=== PATIENT | female | born 1940 | race Caucasian/White ===

== ENCOUNTER → 2016-10-09 | Outpatient (CLI) | payer OTHER ==
[~2016-10-09] MED LIST: ATEN50TA8 PO; B-CO-25 PO; CHOL1CAP57 PO; GLUCTAB7 PO; LASIX PO; LEVO50TA PO; MAGNESIUM PO; MINOCYCLINE PO; NAPR-1169 PO; OMEGCAP2 PO; PRAZ5CAP2 PO; PRLSR20 PO; RXC5 PO; SENN1TAB25 PO
[2016-10-09 11:30] LABS: URINE TOTAL PROTEIN 6.3 mg/dl (0-11.9)
== END | disposition home or self-care (01) ==
LOC: C.LAB 09:33
PROVIDERS: ATTEND Internal Medicine
DX: R60.9 Edema, unspecified (principal)

== ENCOUNTER 2016-10-22 05:42 | Inpatient (IN) | payer OTHER ==
[2016-10-09 09:07] VITALS: BMI 45.0
--- NOTE | 2016-10-09 09:44 | PAT Medication Instructions ---
Service Date Oct 09, 2016. Current Home Medication List Atenolol (Tenormin), 50 MG PO QAM B-Complex W/ Folic Acid (Super B Complex Maxi), 1 TAB PO QAM Cholecalciferol (Vitamin D3), 1,000 UNITS PO QAM Xkmgckdmrwo-Wwjvkudovbn-Uqc C- (Glucosamine Chondroitin), 1 TAB PO QAM Levothyroxine Sodium (Synthroid), 50 MCG PO QAM Naproxen (Naprosyn), 500 MG PO BID [place]-3 Fatty Acids (Fish Oil), 1 TAB PO QAM Omeprazole (Prilosec), 20 MG PO BID Prazosin Hcl (Prazosin), 5 MG PO HS Sennosides-Docusate Sodium (Stool Softener & Stimulan), 1 TAB PO HS [Lasix], 1 TAB PO QAM [Magnesium], 250 MG PO QAM [Minocyline], 50 MG PO HS Medication Instructions For Your Scheduled Surgery - Check with surgeon for instructions: Naproxen (Naprosyn), 500 MG PO BID - Hold the following medications starting 10/10/16: [place]-3 Fatty Acids (Fish Oil), 1 TAB PO QAM Kdrfwkzldyu-Hydezmjmgqn-Loc C- (Glucosamine Chondroitin), 1 TAB PO QAM - Hold the following medications the morning of surgery: [Magnesium], 250 MG PO QAM [Lasix], 1 TAB PO QAM Cholecalciferol (Vitamin D3), 1,000 UNITS PO QAM B-Complex W/ Folic Acid (Super B Complex Maxi), 1 TAB PO QAM - Take the following medications the morning of surgery with a sip of water: Omeprazole (Prilosec), 20 MG PO BID Levothyroxine Sodium (Synthroid), 50 MCG PO QAM Atenolol (Tenormin), 50 MG PO QAM - Take the following medications as scheduled the night before surgery: [Minocyline], 50 MG PO HS Sennosides-Docusate Sodium (Stool Softener & Stimulan), 1 TAB PO HS Prazosin Hcl (Prazosin), 5 MG PO HS Omeprazole (Prilosec), 20 MG PO BID If you have any questions please call us at [phone] (Keren Suh PA-C) or [phone] or [phone]
[2016-10-09 10:46] LABS: BASO % 0.5 %; BASO ABS # 0.03 K/uL (0-0.2); COMPLETE YES; EOS % 1.6 %; HEMATOCRIT 36.3 % (37-47); LYMPH % 41.2 %; LYMPH ABS # 2.34 K/uL (1.2-3.4); MEAN CELL VOLUME 92.1 fL (80-100); MEAN CORPUSCULAR HEMOGLOBIN 30.7 pg (25-34); MEAN CORPUSCULAR HGB CONC 33.3 g/dl (32-36); MEAN PLATELET VOLUME 10.8 fL (7.4-10.4); MONO % 7.6 %; NEUT % 49.1 %; PLATELET COUNT 232 K/uL (130-400); RED BLOOD COUNT 3.94 M/uL (4.2-5.4); WHITE BLOOD COUNT 5.68 K/uL (4.8-10.8)
[2016-10-09 11:00] LABS: URINE APPEARANCE CLOUDY (CLEAR); URINE BILIRUBIN NEG (NEG); URINE COLOR DK YELLOW; URINE EPITHELIAL CELL AUTO >30 /lpf (0-5); URINE NITRITE NEG (NEG); URINE SPECIFIC GRAVITY 1.028 (1.000-1.030); UROBILINOGEN NEG (NEG)
[2016-10-09 11:03] LABS: MANUAL MICROSCOPIC REQUIRED? NO; REVIEW REQ? NO
[2016-10-09 11:09] LABS: BUN/CREATININE RATIO 17.1 (10-20); CALCIUM 9.3 mg/dl (8.5-10.1); POTASSIUM 4.1 mmol/L (3.5-5.1)
--- NOTE | 2016-10-09 12:40 | DIAGNOSTIC IMAGING REPORT ---
CHEST PREADMISSION(PA/LAT) CLINICAL HISTORY: Preoperative chest COMPARISON STUDY: No previous studies for comparison. FINDINGS: The heart is mildly enlarged. There is calcification within the mitral valve annulus. There is mild right hilar prominence. There is diffuse interstitial thickening, a finding of uncertain chronicity.[ There is no lobar consolidation. There are no pleural effusions. IMPRESSION: 1. Cardiomegaly and interstitial thickening, a finding of uncertain chronicity 2. Mild right hilar prominence Electronically signed by: Robb Rodriguez M.D. 10/09/2016 12:38 PM Dictated Date/Time: 10/09/2016 12:37 PM
--- NOTE | 2016-10-18 09:00 | HISTORY & PHYSICAL EXAMINATION ---
DATE OF ADMISSION: 10/22/2016 The patient presents to our office with complaint of numbness and tingling down her right lower extremity. She also has chronic back pain, as well as fatigue and numbness in both of her legs. She is unable to stand or walk greater than 5 minutes secondary to above-mentioned symptoms. She has trialed epidural injection at the L4-L5 level without any long-lasting relief. Denies bowel or bladder dysfunction. She has trialed medication care manager in the past. MEDICAL HISTORY: Significant for morbid obesity. SURGICAL HISTORY: Significant for unknown. ALLERGIES: Not listed. MEDICATIONS: Not listed. SOCIAL HISTORY: Tobacco history unknown. Alcohol history unknown. REVIEW OF SYSTEMS: Significant for back pain, bilateral leg pain and numbness. PHYSICAL EXAMINATION: HEENT: Speech appropriate. CARDIOPULMONARY: No gross abnormalities. ABDOMEN: Soft and nondistended. NEUROLOGIC: Cranial nerves II-XII grossly intact. MUSCULOSKELETAL: She moves easily around the room. No focal atrophy of lower extremities. She is tender to palpation along the thoracolumbar spine to palpation. Strength is otherwise intact in lower extremities bilaterally. ASSESSMENT: Spinal stenosis and spondylolisthesis, L3-L4 and L4-L5. PLAN: At this point in time, we have reviewed surgical intervention which would require lumbar decompression L3-4, L4-5, instrumented fusion L3-S1. Risks, benefits, pros, cons, and alternatives were outlined in detail. The patient would like to proceed with the above-mentioned surgical intervention.
[~2016-10-22] VITALS: Ht 162.6 cm; Wt 120.1 kg
[2016-10-22] VITALS (9 sets, daily range): BP systolic 104–146; BP diastolic 65–83; PULSE 64–76; TEMP 36.3–36.8; O2SAT 91–96; Ht 162.6 cm; Wt 120.1 kg
[~2016-10-22 05:42] MED LIST changes: -RXC5 PO
[2016-10-22] MEDS ORDERED: CEFAZOLIN 3000 MG/65 ML D5W IV SCH (06:00)
[2016-10-22] MEDS ORDERED: LACTATED RINGER'S 1000ML 1,000 ML IV SCH (06:00)
[2016-10-22] MEDS ORDERED: FENTANYL CITRATE INJ 50 MCG/1 ML 2 ML VIAL ONE (06:14)
[2016-10-22] MEDS ORDERED: MIDAZOLAM HCL 1 MG/ML 2ML VIAL ONE (06:14)
[2016-10-22] MEDS ORDERED: REMIFENTANIL 1 MG VIAL ONE ×2 (06:30→08:27)
[2016-10-22] MEDS ORDERED: PROPOFOL IV EMULSION 10 MG/ML 100 ML VIAL IV ONE (06:37)
[2016-10-22] MEDS ORDERED: SODIUM CHLORIDE 0.9% PF 50 ML VIAL ONE (07:05)
[2016-10-22] MEDS ORDERED: BUPIVACAINE/EPINEPHRINE 0.5% MPF 1:200,000 30 ML VIAL ONE (07:05)
[2016-10-22] MEDS ORDERED: THROMBIN FOR SOLN 20000 UNIT KIT ONE (07:06)
[2016-10-22] MEDS ORDERED: BACITRACIN 50000 UNIT VIAL ONE (07:06)
--- NOTE | 2016-10-22 07:26 | History & Physical Bridge Note ---
H&P Re-Evaluation Bridge Note: I have examined the patient, reviewed the History & Physical and in the interval since the performance of the History & Physical I have noted the following changes of clinical significance: No changes noted
[2016-10-22] MEDS ORDERED: NALOXONE HCL 0.4 MG/1 ML VIAL/CARP IV PRN ×3 (07:45→09:45)
[2016-10-22] MEDS ORDERED: MoRPHine SULFATE 10 MG/ML CARP/VIAL IV PRN (07:45)
[2016-10-22] MEDS ORDERED: PHENYLEPHRINE 100MCG/ML 5ML SYR IV PRN (07:45)
[2016-10-22] MEDS ORDERED: ATROPINE SULFATE 0.1 MG/ML 5ML SYR IV PRN (07:45)
[2016-10-22] MEDS ORDERED: FLUMAZENIL 0.1 MG/1 ML 10 ML VIAL IV PRN (07:45)
[2016-10-22] MEDS ORDERED: EpHEDrine SULFATE INJ 50 MG/ML AMP IV PRN (07:45)
[2016-10-22] MEDS ORDERED: LABETALOL HCL IV 5 MG/ML 20ML IV PRN (07:45)
[2016-10-22] MEDS ORDERED: ONDANSETRON INJ 2 MG/ML 2 ML VIAL IV PRN (07:45)
[2016-10-22] MEDS ORDERED: MEPERIDINE HCL 25 MG/ML CARP IV PRN (07:45)
[2016-10-22] MEDS ORDERED: SODIUM CHLORIDE 0.9% 1000ML 1,000 ML IV SCH (09:36)
--- NOTE | 2016-10-22 09:36 | [facility] Post Operative Brief Note ---
Immediate Operative Summary Operative Date Oct 22, 2016. Pre-Operative Diagnosis Spinal stenosis and spondylolisthesis, L3-L4 and L4-L5 Post-Operative Diagnosis Same as preop Procedure(s) Performed decompression fusion Surgeon Dr. Enoc Au Sas Programmer Analyst Surgeon(s) NENITA Rasmussen Estimated Blood Loss 500 Findings stenosis Specimens None per surgeon
[2016-10-22] MEDS ORDERED: FLOSEAL HEMOSTATIC MATRIX 10ML TOP ONE (09:38)
[2016-10-22] MEDS ORDERED: LORAZEPAM INJ 0.5 MG in SYRINGE 0 ML IV PRN (09:45)
[2016-10-22] MEDS ORDERED: ALUMINUM/MAGNESIUM SUSP 30 ML UDC PO PRN (09:45)
[2016-10-22] MEDS ORDERED: SOD PHOSPHATE/SOD BIPHOSPHATE ENEMA 132 ML BTL PR PRN (09:45)
[2016-10-22] MEDS ORDERED: LORAZEPAM 0.5 MG TAB PO PRN (09:45)
[2016-10-22] MEDS ORDERED: ACETAMINOPHEN 500 MG TAB PO PRN (09:45)
[2016-10-22] MEDS ORDERED: ACETAMINOPHEN IV 100 ML IV PRN (09:45)
[2016-10-22] MEDS ORDERED: DO NOT ADMINISTER FLU VACCINE PRN ×3 (09:45)
[2016-10-22] MEDS ORDERED: DO NOT ADMINISTER PNEUMOCOCCAL VACCINE PRN ×2 (09:45)
[2016-10-22] MEDS ORDERED: FAMOTIDINE 20 MG TAB PO PRN (09:45)
[2016-10-22] MEDS ORDERED: BISACODYL 10 MG SUPP PR PRN (09:45)
[2016-10-22] MEDS ORDERED: MAGNESIUM HYDROXIDE SUSP 30 ML UDC PO PRN (09:45)
[2016-10-22] MEDS ORDERED: METOCLOPRAMIDE HCL INJ 5 MG/ML 2 ML VIAL IV PRN (09:45)
[2016-10-22] MEDS ORDERED: PROMETHAZINE HCL INJ 12.5 MG in SODIUM CHLORIDE 0.9% 50ML 50 ML IV PRN (09:45)
[2016-10-22] MEDS ORDERED: hydrOXYzine HCL 25 MG TAB PO PRN (09:45)
[2016-10-22] MEDS ORDERED: HYDROmorphone INJ 2 MG/ML SYR/VIAL ONE (09:48)
--- NOTE | 2016-10-22 09:56 | OPERATIVE REPORT ---
DATE OF OPERATION: 10/22/2016 PREOPERATIVE DIAGNOSES: Spinal stenosis and spondylolisthesis. POSTOPERATIVE DIAGNOSES: Same. PROCEDURES PERFORMED: 1. Lumbar decompression, medial facetectomy, foraminotomy, and decompression at L2-L3, L3-L4, L4-L5, and L5-S1. 2. Posterior spinal fusion, L3-L4, L4-L5, and L5-S1. 3. Placement of posterior segmental instrumentation using Medicrea rods and screws, L3 to S1. 4. Interbody fusion, L4-L5. 5. Placement of PEEK cage, 11 x 22 mm at L4-L5. 6. Placement of locally harvested morselized autograft in the posterior gutters. 7. Placement of Infuse collagen sponge combined with Mastergraft in the posterior gutters and Mohini bone grafting in the interbody space. SURGEON: Dr. Enoc Au. GENOMICS SCIENTIST: Mariam Fajardo PA-C. Due to the complex nature of the procedure, the entire surgery was performed with the executive marketing assistant of ZI Villalpando. The assistant professor of anthropology, under direct supervision, was involved in the actual performance of all aspects of the surgical procedure including hemostasis, tissue retraction and incision, instrument management, patient positioning, and wound closure. ANESTHESIA: General. DISPOSITION: The patient awakened and taken to PACU in stable condition. HISTORY OF PATIENT'S PROBLEMS: This is a 76-year-old female that presents with above-mentioned diagnoses. After failing an extensive course of nonoperative care, she elected to undergo the above-mentioned procedures. Risks, benefits, pros, cons, and alternatives were outlined in detail preoperatively. DESCRIPTION OF PROCEDURE: The patient was met preoperatively, case discussed and all questions were addressed. At that point, the patient was taken back to the operative suite and after undergoing successful general intubation by the department of anesthesia, she was placed in prone position on [place] table atop the Gus frame. All bony prominences were well padded and the eyes were inspected to ensure there was no external pressure placed upon them. At this point, lumbar spine was prepped and draped in normal sterile fashion. Sharp dissection with the assistance of Bovie cautery performed down to and exposing the lamina and transverse processes of L3, L4, L5 and sacral ala bilaterally. From a caudal to cephalad fashion, complete laminectomy of L5, L4, L3 and partial laminectomy of L2 was performed addressing severe lateral recess and foraminal stenosis. Pedicle screws were then placed in L3, L4, L5 and S1 levels bilaterally with the assistance of fluoroscopy and through a transforaminal approach on the left, a complete diskectomy of L4-L5 was performed, endplates curetted to subcortical bleeding bone and 11 x 22 mm PEEK cage filled with Mohini bone grafting tapped into position. Rods were then placed, compressed, locked into final position bilaterally and transverse processes of L3, L4, L5 and sacral ala burred to subcortical bone. Infuse collagen sponge combined with Mastergraft and locally harvested morselized autograft was placed in the posterior gutters. A 7 flat ANNAMARIA drain was inserted. Incision was closed with 1-0 Vicryl in the fascia, 2-0 Vicryl subcutaneously, and 4-0 Monocryl for final skin closure. Steri-Strips and sterile dressing placed. The patient was awakened and taken to PACU in stable condition. I attest to the content of the Intraoperative Record and any orders documented therein. Any exceptio ns are noted below.
[2016-10-22] MEDS ORDERED: NEOSTIGMINE METHYLSULFATE 1 MG/ML 10ML VIAL ONE (10:04)
[2016-10-22] MEDS ORDERED: LIDOCAINE HCL 2% 2 ML VIAL (20MG/ML) ONE (10:04)
[2016-10-22] MEDS ORDERED: DEXAMETHASONE SOD INJ 4 MG/ML VIAL ONE (10:04)
[2016-10-22] MEDS ORDERED: ONDANSETRON INJ 2 MG/ML 2 ML VIAL ONE (10:04)
[2016-10-22] MEDS ORDERED: GLYCOPYRROLATE INJ 0.2 MG/ML VIAL ONE (10:04)
[2016-10-22] MEDS ORDERED: ROCURONIUM BROMIDE 10 MG/ML 5 ML VIAL ONE (10:04)
[2016-10-22] MEDS ORDERED: PROPOFOL IV EMULSION 10 MG/ML 20 ML VIAL IV ONE (10:04)
[2016-10-22] MEDS ORDERED: EpHEDrine SULFATE 50MG/5ML SYR ONE (10:04)
--- NOTE | 2016-10-22 10:13 | DIAGNOSTIC IMAGING REPORT ---
LUMBAR SPINE, INTRAOPERATIVE FLUOROSCOPY HISTORY: L3-S1 decompression and fusion. FLUOROSCOPY TIME: 21 seconds. FINDINGS: Intraoperative fluoroscopy was provided for the lumbar spine. 2 fluoroscopic spot images were obtained. Posterior decompression and fusion from L3 through S1 with pedicle screws and rods. The hardware is intact. IMPRESSION: Fluoroscopy provided for a L3-S1 posterior decompression and fusion. Electronically signed by: Shahbaz Grace M.D. 10/22/2016 10:12 AM Dictated Date/Time: 10/22/2016 10:11 AM
[2016-10-22] MEDS: HYDROmorphone INJ 1 MG/ML SYR IV PRN ×4 (10:15→10:40)
[2016-10-22] MEDS: HYDROmorphone HCL 0.5MG/ML 50 ML CASSETTE IV PRN ×3 (10:17→18:55)
--- NOTE | 2016-10-22 11:02 | Anesthesiology Progress Note ---
Anesthesia Post Op Note Date & Time Oct 22, 2016 at 11:01 Vital Signs Pain Intensity: 3 Vital Signs Past 12 Hours Date Time Temp Pulse Resp B/P Pulse Ox O2 Delivery O2 Flow Rate FiO2 10/22/16 10:55 36.3 78 12 134/74 93 Nasal Cannula 4 10/22/16 10:46 83 15 134/55 96 Nasal Cannula 4 10/22/16 10:40 84 10 132/69 93 Nasal Cannula 4 10/22/16 10:30 82 14 125/62 95 Mask 10 10/22/16 10:20 80 24 100/63 97 Mask 10 10/22/16 10:11 80 17 113/58 95 Mask 10 10/22/16 10:04 37.2 87 16 125/78 94 Mask 10 10/22/16 06:32 36.8 71 20 146/74 94 Room Air Notes Mental Status: alert / awake / arousable, participated in evaluation Pt Amnestic to Procedure: Yes Nausea / Vomiting: adequately controlled Pain: adequately controlled, improving with treatment Airway Patency, RR, SpO2: stable & adequate BP & HR: stable & adequate Hydration State: stable & adequate Anesthetic Complications: no major complications apparent The patient did well. She had an anesthetic using non-triggering agents for MH. Her pain is being controlled with an IV KILN SETTER.
[2016-10-22] MEDS: SODIUM CHLORIDE 0.9% 1000ML 1,000 ML IV SCH ×3 (11:33→22:23)
[2016-10-22] MEDS: DEXAMETHASONE INJ 6 MG in SYRINGE 0 ML IV SCH ×2 (13:15→21:16)
[2016-10-22] MEDS: CLINDAMYCIN IV 600 MG in DEXTROSE 5% ADD-VANTAGE 50ML 50 ML IV SCH ×2 (13:15→21:16)
--- NOTE | 2016-10-22 13:37 | Medical Consult ---
Consultation Date of Consultation: Oct 22, 2016. Attending Physician: Enoc Au D.O. Reason for Consultation: Postop Medical Management History of Present Illness Patient seen and examined. 76 year old female with PMHx of HTN, Hypothyroidism, is seen in consultation for postop medical management following a decompression fusion by Dr. Au. Patient currently reports feeling drowsy, otherwise she reports feeling well. She denies fevers, chills, chest pain, SOB, nausea, vomiting, diarrhea, dysuria, calf pain and edema. Last BM yesterday. Denies history of VTE. Past Medical/Surgical History Medical Problems: (1) GERD (gastroesophageal reflux disease) Status: Chronic (2) HTN (hypertension) Status: Chronic (3) Hypothyroidism Status: Chronic Surgical Problems: (1) H/O shoulder surgery Status: Chronic (2) History of back surgery Status: Chronic (3) History of carpal tunnel surgery Status: Chronic Social History Smoking Status: Never Smoker Alcohol Use: none Housing Status: lives with family Occupation Status: retired Allergies Coded Allergies: Celecoxib (Verified Adverse Reaction, Unknown, NAUSEA, 10/22/16) Tramadol (Verified Adverse Reaction, Unknown, NAUSEA AND VOMITING, 10/22/16 ) Current Inpatient Medications Current Inpatient Medications Medications (Trade) Dose Ordered Sig/Valdemar Route Start Time Stop Time Status Last Admin Dose Admin Cefazolin Sodium 65 ml @ 100 mls/hr PREOP IV 10/22/16 06:00 10/22/16 18:00 10/22/16 07:32 100 MLS/HR Clindamycin Phosphate 600 mg/ Dextrose 54 ml @ 100 mls/hr Q8H IV 10/22/16 14:00 10/22/16 22:33 10/22/16 13:15 100 MLS/HR Dexamethasone Sodium Phosphate 6 mg/Syringe 1.5 ml @ 1 mls/min Q8H IV 10/22/16 14:00 10/23/16 06:02 10/22/16 13:15 1 MLS/MIN Promethazine HCl/ Sodium Chloride (Phenergan Inj/ Nss 50ml) 50.5 ml @ 202 mls/hr Q6H PRN IV 10/22/16 09:45 11/21/16 09:44 Ondansetron HCl (Zofran Inj) 4 mg Q6H PRN IV 10/22/16 09:45 11/21/16 09:44 Metoclopramide HCl (Reglan Inj) 10 mg Q6H PRN IV 10/22/16 09:45 11/21/16 09:44 Lorazepam 0.5 mg 0.5 mg Q8H PRN PO 10/22/16 09:45 11/21/16 09:44 Lorazepam/Syringe (Ativan Inj/ Syringe) 0.25 ml @ 1 mls/min Q8H PRN IV 10/22/16 09:45 11/21/16 09:44 Pneumococcal Polysaccharide Vaccine 1 ea PRN PRN N/A 10/22/16 09:45 11/21/16 09:44 Influenza Virus Vacc Triv Types A&B 1 ea PRN PRN N/A 10/22/16 09:45 11/21/16 09:44 Polyethylene (Miralax Powder Packet) 17 gm Q6 PO 10/24/16 06:00 11/23/16 05:59 Bisacodyl (Dulcolax Supp) 10 mg DAILY PRN NE 10/22/16 09:45 11/21/16 09:44 Magnesium Hydroxide (Milk Of Magnesia Susp) 30 ml DAILY PRN PO 10/22/16 09:45 11/21/16 09:44 Hydromorphone HCl (Dilaudid Inj) 0.5 mg Q3H PRN IV 10/23/16 06:00 11/06/16 05:59 Oxycodone HCl 5-10mg prn moderate to sev... Q4H PRN PO 10/23/16 06:00 11/06/16 05:59 Sodium Chloride (Nss 1000ml) 1,000 ml @ 150 mls/hr Q6H40M IV 10/22/16 09:36 11/21/16 09:35 10/22/16 11:33 150 MLS/HR Acetaminophen 1000 mg 1,000 mg Q8H PRN PO 10/22/16 09:45 11/21/16 09:44 Acetaminophen (Ofirmev Iv) 100 ml @ 400 mls/hr Q8H PRN IV 10/22/16 09:45 11/21/16 09:44 Naloxone HCl (Narcan Inj) 0.1 mg Q5M PRN IV 10/22/16 09:45 11/21/16 09:44 Senna/Docusate Sodium (Senokot S Tab) 2 tab HS PO 10/22/16 21:00 11/21/16 20:59 Sodium Biphosphate/ Sodium Phosphate (Fleet Enema) 132 ml ONE PRN NE 10/22/16 09:45 11/21/16 09:44 Hydroxyzine HCl (Vistaril Tab) 25 mg Q8H PRN PO 10/22/16 09:45 11/21/16 09:44 Al Hydroxide/Mg Hydroxide (Maalox Susp) 30 ml Q6H PRN PO 10/22/16 09:45 11/21/16 09:44 Famotidine (Pepcid Tab) 20 mg Q12 PRN PO 10/22/16 09:45 11/21/16 09:44 Diphenhydramine HCl (Benadryl Cap) 25 mg Q6H PRN PO 10/22/16 09:45 11/21/16 09:44 Miscellaneous Information (Discontinue WET CLEANER MACHINE) 1 ea TODAY@0600 N/A 10/23/16 06:00 10/23/16 06:01 Naloxone HCl (Narcan Inj) 0.1 mg Q5M PRN IV 10/22/16 09:45 10/23/16 06:00 Hydromorphone HCl 25 mg 25 mg PRN PRN IV 10/22/16 09:45 10/23/16 06:00 10/22/16 11:29 25 MG Sodium Chloride (Nss 1000ml) 1,000 ml @ 15 mls/hr Q24H IV 10/22/16 09:36 10/23/16 06:00 Atenolol (Tenormin Tab) 50 mg QAM PO 10/23/16 09:00 11/22/16 08:59 Levothyroxine Sodium (Synthroid Tab) 50 mcg DAILYBB PO 10/23/16 06:00 11/22/16 05:59 Hydromorphone HCl (Dilaudid Inj) 1 mg Q3H PRN IV 10/23/16 06:00 11/06/16 05:59 Review of Systems See above for pertinent positives & negatives. A total of 10 systems reviewed and were otherwise negative. Physical Exam Date Time Temp Pulse Resp B/P Pulse Ox O2 Delivery O2 Flow Rate FiO2 2/20/17 12:25 36.5 76 17 112/72 91 Nasal Cannula 4.0 10/22/16 11:55 70 16 104/67 96 4.0 10/22/16 11:25 Nasal Cannula 4.0 10/22/16 11:25 95 Nasal Cannula 4.0 10/22/16 11:25 36.6 73 16 111/74 95 Nasal Cannula 4.0 10/22/16 11:16 65 12 110/49 97 Nasal Cannula 4 10/22/16 11:05 82 12 109/77 97 Nasal Cannula 4 10/22/16 10:55 36.3 78 12 134/74 93 Nasal Cannula 4 10/22/16 10:46 83 15 134/55 96 Nasal Cannula 4 10/22/16 10:40 84 10 132/69 93 Nasal Cannula 4 10/22/16 10:30 82 14 125/62 95 Mask 10 10/22/16 10:20 80 24 100/63 97 Mask 10 10/22/16 10:11 80 17 113/58 95 Mask 10 10/22/16 10:04 37.2 87 16 125/78 94 Mask 10 10/22/16 06:32 36.8 71 20 146/74 94 Room Air General Appearance: + pertinent finding (Drowsy, WD/WN 76 year old female lying in bed in NAD ) Head: normocephalic, atraumatic Eyes: PERRL, EOMI, sclerae normal ENT: normal ENT inspection, hearing grossly normal Neck: supple, no JVD Respiratory/Chest: chest non-tender, lungs clear, normal breath sounds, no respiratory distress, no accessory muscle use Cardiovascular: regular rate, rhythm, no edema, no gallop, no JVD, normal peripheral pulses, + systolic murmur Abdomen/GI: normal bowel sounds, non tender, soft Genitourinary - Female: + pertinent finding (polk cath with pale yellow urine ) Extremities/Musculoskelatal: no calf tenderness, normal capillary refill, no pedal edema Neurologic/Psych: + pertinent finding (Drowsy but awakens to verbal stimuli, oriented x 3, no focal deficits noted on gross exam ) Skin: normal color, warm/dry, no rash Lymphatic: no adenopathy Assessment & Plan LUMBAR DECOMPRESSION FUSION -POD#[address] Au -Management as per ortho to include- pain control, bowel regimen, DVT prophylaxis, PT/OT, incentive spirometry, wound care -EBL 500ml -Follow H&H daily for postop anemia, preop was 12.1&36.3 -CBC, PRP, Mg daily -Patient's outpatient med list has minocycline on it - unsure why. Perioperative antibiotics per ortho. -Patient also has Lasix of unknown dose on med list - no known CHF- recent Echo normal. Hold for now HTN -stable -continue Atenolol HYPOTHYROIDISM -continue Synthroid GERD -continue PPI DVT PROPHYLAXIS: per ortho CODE STATUS: FULL CODE DISPO: per ortho Patient seen in collaboration with Dr. Bates Thank you for this consultation. We will follow the patient with you during their hospital stay. You can reach a member of the [facility] Hospitalist Team 25/03 via pager @ [phone]. Agree with above consult note. 76F is s/p back surgery. tolerated procedure. pain under control with pain meds. Denies chest pain or sob. No nausea. No fevers.resting comfortably p/e Ge not in distress Cvs s1 and s2 heard no murmurs Rs cta b/l no wheezing or crackles Abd benign Is/It Project Manager non focal Musculoskeletal s/p back surgery Ext no erythema. a/p HTN home meds will monitor hypothyroidism Synthroid
[2016-10-22] MEDS: ONDANSETRON INJ 2 MG/ML 2 ML VIAL IV PRN (17:19)
[2016-10-22] MEDS: DOCUSATE SODIUM/SENNA 50/8.6MG TAB PO SCH (21:16)
[2016-10-23 03:15] VITALS: BP 133/80; PULSE 75; TEMP 36.6; O2SAT 95
[2016-10-23] MEDS: SODIUM CHLORIDE 0.9% 1000ML 1,000 ML IV SCH (05:15)
[2016-10-23] MEDS: DEXAMETHASONE INJ 6 MG in SYRINGE 0 ML IV SCH (05:53)
[2016-10-23] MEDS: LEVOTHYROXINE 50 MCG TAB PO SCH (05:54)
[2016-10-23] MEDS ORDERED: HYDROmorphone INJ 0.5 MG/0.5 ML SYR IV PRN (06:00)
[2016-10-23] MEDS ORDERED: DC PCA SCH (06:00)
[2016-10-23] MEDS ORDERED: HYDROmorphone INJ 1 MG/ML SYR IV PRN (06:00)
[2016-10-23] MEDS ORDERED: NURSING DECISION MEDICATION ORDER SCH (06:30)
[2016-10-23] MEDS: OXYCODONE HCL IR 5 MG TAB (IMMEDIATE RELEASE) PO PRN ×2 (07:09→13:25)
[2016-10-23 07:24] LABS: COMPLETE YES; HEMATOCRIT 32.7 % (37-47); IG% 0.3 %; LYMPH % 5.9 %; LYMPH ABS # 0.72 K/uL (1.2-3.4); MEAN CELL VOLUME 92.1 fL (80-100); MEAN CORPUSCULAR HEMOGLOBIN 31.3 pg (25-34); MEAN CORPUSCULAR HGB CONC 33.9 g/dl (32-36); MEAN PLATELET VOLUME 11.3 fL (7.4-10.4); MONO % 5.5 %; NEUT % 88.3 %; PLATELET COUNT 245 K/uL (130-400); RED BLOOD COUNT 3.55 M/uL (4.2-5.4); WHITE BLOOD COUNT 12.15 K/uL (4.8-10.8)
[2016-10-23 08:04] LABS: BUN/CREATININE RATIO 15.5 (10-20); CALCIUM 8.6 mg/dl (8.5-10.1); CREATININE 0.84 mg/dl (0.60-1.20); POTASSIUM 3.9 mmol/L (3.5-5.1)
[2016-10-23 08:11] VITALS: BP 135/79; PULSE 73; TEMP 36.7; O2SAT 94
[2016-10-23 09:32] VITALS: BP 123/73; PULSE 80; O2SAT 92
--- NOTE | 2016-10-23 10:03 | Anesthesiology Progress Note ---
Anesthesia Post Op Note Date & Time Oct 23, 2016 at 10:02 Vital Signs Pain Intensity: 4.0 Vital Signs Past 12 Hours Date Time Temp Pulse Resp B/P Pulse Ox O2 Delivery O2 Flow Rate FiO2 10/23/16 08:12 Room Air 10/23/16 08:11 36.7 73 16 135/79 94 Room Air 10/23/16 03:15 36.6 75 18 133/80 95 Nasal Cannula 4.0 10/22/16 23:25 36.5 68 18 144/83 96 Nasal Cannula 4.0 Notes Mental Status: alert / awake / arousable, participated in evaluation Pt Amnestic to Procedure: Yes Nausea / Vomiting: adequately controlled Pain: adequately controlled Airway Patency, RR, SpO2: stable & adequate BP & HR: stable & adequate Hydration State: stable & adequate Anesthetic Complications: no major complications apparent
[2016-10-23 11:20] VITALS: BP 124/71; PULSE 84; TEMP 36.7; O2SAT 92
[2016-10-23 15:25] VITALS: BP 126/74; PULSE 66; TEMP 36.8; O2SAT 95
--- NOTE | 2016-10-23 16:35 | PROGRESS NOTE ---
DATE: 10/23/2016 SUBJECTIVE: Postop day #1. Back pain controlled. Leg pain improved. Vital signs stable. T-max 36.8. ANNAMARIA drained 100 mL. Hematocrit this a.m. is 32.7. OBJECTIVE: On exam, she has good strength to testing and is comfortable. ASSESSMENT: Status post lumbar decompression and fusion. PLAN: At this time, will continue physical therapy, advance bowel regimen and anticipate home with home health for the next few days.
--- NOTE | 2016-10-23 19:04 | Progress Note ---
Medicine Progress Note Date & Time of Visit: Oct 23, 2016 at 19:00. Subjective Patient seen and examined. Walking the hallways this morning. Pain is manageable. Objective Last 8 Hrs Date Time Temp Pulse Resp B/P Pulse Ox O2 Delivery O2 Flow Rate FiO2 10/23/16 15:25 36.8 66 17 126/74 95 Room Air 10/23/16 11:20 36.7 84 18 124/71 92 Room Air Physical Exam: General-awake; alert; NAD Eyes-EOMI; no scleral icterus Neck-no stridor; trachea midline Lungs-CTA bilaterally anteriorly Heart-RRR; no m/r/g Abdomen-soft; NTND; nBS Extremities-no c/c/e; no deformity Neuro-no gross focal deficits Laboratory Results: Last 24 Hours Test 10/23/16 06:54 White Blood Count 12.15 K/uL Red Blood Count 3.55 M/uL Hemoglobin 11.1 g/dL Hematocrit 32.7 % Mean Corpuscular Volume 92.1 fL Mean Corpuscular Hemoglobin 31.3 pg Mean Corpuscular Hemoglobin Concent 33.9 g/dl Platelet Count 245 K/uL Mean Platelet Volume 11.3 fL Neutrophils (%) (Auto) 88.3 % Lymphocytes (%) (Auto) 5.9 % Monocytes (%) (Auto) 5.5 % Eosinophils (%) (Auto) 0.0 % Basophils (%) (Auto) 0.0 % Neutrophils # (Auto) 10.72 K/uL Lymphocytes # (Auto) 0.72 K/uL Monocytes # (Auto) 0.67 K/uL Eosinophils # (Auto) 0.00 K/uL Basophils # (Auto) 0.00 K/uL RDW Standard Deviation 44.4 fL RDW Coefficient of Variation 13.1 % Immature Granulocyte % (Auto) 0.3 % Immature Granulocyte # (Auto) 0.04 K/uL Sodium Level 141 mmol/L Potassium Level 3.9 mmol/L Chloride Level 103 mmol/L Carbon Dioxide Level 27 mmol/L Anion Gap 11.0 mmol/L Blood Urea Nitrogen 13 mg/dl Creatinine 0.84 mg/dl Est Creatinine Clear Calc Drug Dose 73.9 ml/min Estimated GFR () 78.8 Estimated GFR (Non- 68.0 BUN/Creatinine Ratio 15.5 Random Glucose 147 mg/dl Calcium Level 8.6 mg/dl Assessment & Plan LUMBAR DECOMPRESSION FUSION -surgery by Dr. Au on 10/22/16 -management as per ortho to include- pain control, bowel regimen, DVT prophylaxis, PT/OT, incentive spirometry, wound care -patient also has Lasix of unknown dose on med list - no known CHF- recent Echo normal; hold for now HTN -stable -continue Atenolol HYPOTHYROIDISM -continue Synthroid GERD -continue PPI DVT PROPHYLAXIS: per ortho CODE STATUS: FULL CODE DISPO: per ortho. Anticipate discharge home with home health. Current Inpatient Medications: Current Inpatient Medications Medications (Trade) Dose Ordered Sig/Valdemar Route Start Time Stop Time Status Last Admin Dose Admin Promethazine HCl/ Sodium Chloride (Phenergan Inj/ Nss 50ml) 50.5 ml @ 202 mls/hr Q6H PRN IV 10/22/16 09:45 11/21/16 09:44 Ondansetron HCl (Zofran Inj) 4 mg Q6H PRN IV 10/22/16 09:45 11/21/16 09:44 10/22/16 17:19 4 MG Metoclopramide HCl (Reglan Inj) 10 mg Q6H PRN IV 10/22/16 09:45 11/21/16 09:44 Lorazepam 0.5 mg 0.5 mg Q8H PRN PO 10/22/16 09:45 11/21/16 09:44 Lorazepam/Syringe (Ativan Inj/ Syringe) 0.25 ml @ 1 mls/min Q8H PRN IV 10/22/16 09:45 11/21/16 09:44 Pneumococcal Polysaccharide Vaccine 1 ea PRN PRN N/A 10/22/16 09:45 11/21/16 09:44 Influenza Virus Vacc Triv Types A&B 1 ea PRN PRN N/A 10/22/16 09:45 11/21/16 09:44 Polyethylene (Miralax Powder Packet) 17 gm Q6 PO 10/24/16 06:00 11/23/16 05:59 Bisacodyl (Dulcolax Supp) 10 mg DAILY PRN IN 10/22/16 09:45 11/21/16 09:44 Magnesium Hydroxide (Milk Of Magnesia Susp) 30 ml DAILY PRN PO 10/22/16 09:45 11/21/16 09:44 Hydromorphone HCl (Dilaudid Inj) 0.5 mg Q3H PRN IV 10/23/16 06:00 11/06/16 05:59 Oxycodone HCl (Roxicodone Immediate Rel Tab) 5-10mg prn moderate to sev... Q4H PRN PO 10/23/16 06:00 11/06/16 05:59 10/23/16 13:25 5 MG Acetaminophen 1000 mg 1,000 mg Q8H PRN PO 10/22/16 09:45 11/21/16 09:44 Acetaminophen (Ofirmev Iv) 100 ml @ 400 mls/hr Q8H PRN IV 10/22/16 09:45 11/21/16 09:44 Naloxone HCl (Narcan Inj) 0.1 mg Q5M PRN IV 10/22/16 09:45 11/21/16 09:44 Senna/Docusate Sodium (Senokot S Tab) 2 tab HS PO 10/22/16 21:00 11/21/16 20:59 10/22/16 21:16 2 TAB Sodium Biphosphate/ Sodium Phosphate (Fleet Enema) 132 ml ONE PRN IN 10/22/16 09:45 11/21/16 09:44 Hydroxyzine HCl (Vistaril Tab) 25 mg Q8H PRN PO 10/22/16 09:45 11/21/16 09:44 Al Hydroxide/Mg Hydroxide (Maalox Susp) 30 ml Q6H PRN PO 10/22/16 09:45 11/21/16 09:44 Famotidine (Pepcid Tab) 20 mg Q12 PRN PO 10/22/16 09:45 11/21/16 09:44 Diphenhydramine HCl (Benadryl Cap) 25 mg Q6H PRN PO 10/22/16 09:45 11/21/16 09:44 Atenolol (Tenormin Tab) 50 mg QAM PO 10/23/16 09:00 11/22/16 08:59 10/23/16 08:39 50 MG Levothyroxine Sodium (Synthroid Tab) 50 mcg DAILYBB PO 10/23/16 06:00 11/22/16 05:59 10/23/16 05:54 50 MCG Hydromorphone HCl (Dilaudid Inj) 1 mg Q3H PRN IV 10/23/16 06:00 11/06/16 05:59
[2016-10-23] MEDS: DOCUSATE SODIUM/SENNA 50/8.6MG TAB PO SCH (21:14)
[2016-10-23 23:05] VITALS: BP 153/80; PULSE 90; TEMP 37.3; O2SAT 91
[2016-10-24] MEDS: POLYETHYLENE (MIRALAX) 17 GM PACK PO SCH ×2 (05:52→12:00)
[2016-10-24] MEDS: LEVOTHYROXINE 50 MCG TAB PO SCH (05:53)
[2016-10-24 06:11] VITALS: BP 138/79; PULSE 80; TEMP 37.2; O2SAT 90
[2016-10-24 06:51] LABS: HEMATOCRIT 33.8 % (37-47); MEAN CELL VOLUME 91.6 fL (80-100); MEAN CORPUSCULAR HEMOGLOBIN 30.6 pg (25-34); MEAN CORPUSCULAR HGB CONC 33.4 g/dl (32-36); MEAN PLATELET VOLUME 11.6 fL (7.4-10.4); PLATELET COUNT 334 K/uL (130-400); RED BLOOD COUNT 3.69 M/uL (4.2-5.4); WHITE BLOOD COUNT 15.15 K/uL (4.8-10.8)
[2016-10-24] MEDS ORDERED: RXC5 PO (07:39)
--- NOTE | 2016-10-24 07:40 | Discharge Instructions ---
Discharge Instructions Admission Reason for Admission: Lumbar Spinal Stenosis Discharge Discharge Diagnosis / Problem: stenosis Discharge Goals Goal(s): Improve function Activity Recommendations Activity Limitations: per Instructions/Follow-up section . Instructions / Follow-Up Instructions / Follow-Up ACTIVITY RECOMMENDATIONS: SELF CARE INSTRUCTIONS AFTER THORACIC/LUMBAR FUSIONS 1. You may walk to your tolerance. It is good exercise for your legs and back. Expect some back and intermittent leg aches and pains. 2. You may perform "counter-top" level activities (make a sandwich, wesley with a project, etc.). 3. No bending or lifting of more than 10 pounds or back twisting of any nature (roll like a log when turning in bed). 4. You may ride in a car for 20-30 minutes at a time. No driving until after your first visit with your doctor. 5. Frequent changes of position and restricting sitting to 30 minutes at a time will help limit the amount of back spasms and stiffness you may experience. 6. You may discontinue the use of ambulatory aids (cane, crutches, etc.) once your strength and confidence allow. 7. 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 Do not take a tub bath, sit in a hot tub or go into a swimming pool until after your first recheck in the office. SPECIAL CARE INSTRUCTIONS: VERY IMPORTANT TO READ AND REVIEW A. Your surgical incision has been closed with a cosmetic suture under the skin that will dissolve in about 6 weeks. In 14 days, you can use a pair of clean scissors and cut the suture that is left outside of the skin at the ends of your incision. 1. The small skin tapes can be removed 7 days after surgery if they have not fallen off by that point. 2. You may keep the wound open to air as much as possible to promote healing after post-op day number 5 unless told otherwise by your doctor. 3. If you think the wound looks like it is becoming infected (redness or worsening drainage) and/or you are experiencing fever, chill or worsening back pain and muscle spasms, contact the office so that we may evaluate you as soon as possible. B. Complications are uncommon, but please contact us if you have any signs or symptoms of: 1. wound infection (fever higher than 102.5 degrees F, redness, separation of wound, drainage, or increasing pain from the incision) 2. blood clots in legs (pain, swelling, redness and warmth in legs) 3. urinary tract infection (fever higher than 102.5 degrees F, burning upon urination or increased frequency of urination) 4. nerve problems (inability to walk on your toes or heels, numbness, loss of bowel or bladder control) 5. any other symptoms that concern you C. Please call the office at if you have any concerns or questions about your operation or recovery. D. No smoking! Smoking drastically decreases the chance of a solid fusion. E. Do not take any anti-inflammatory medications (Indocin, Advil, Motrin, Aspirin, Naprosyn, etc.) as these may inhibit the chance of a solid fusion. Tylenol is okay to take for pain. MANAGING PAIN AFTER SPINAL SURGERY 1. Narcotic medication is intended for short-term use and will be provided for surgical pain. Surgical pain usually lasts for a period of 4-6 weeks. Narcotic medication includes Percocet, Vicodin, Darvocet, Tylenol #3 or Lortab. 2. Longer-term pain is more appropriately treated with non-narcotic medication such as Tylenol ES. 3. Muscle spasm is not appropriately treated with narcotics. Muscle relaxers such as Soma, Flexeril or Skelaxin can be used along with Tylenol ES. 4. Remember that we all live with some "aches and pains". This is not unusual or uncommon after an injury or as we get older. a. Back pain is expected and may include muscle spasms for 4 to 6 weeks after surgery. The pain should gradually improve. If the pain worsens for no apparent reason, please contact the office. b. Intermittent leg pain may also be experienced and should not be concerned about unless it worsens for no apparent reason. If so, please contact the office. 5. We will provide appropriate medication within the normal guidelines of their prescribed use. We will also be very cautious and aware of potential abuse and extended duration of patients' medication needs. a. Pain medications are for your comfort and to assist with sleep and rest so that the tissue can heal. They are not provided in order to return to normal activity and should not be used through the day. To do so or worsening pain at night can result from ongoing tissue damage and development of tolerance to the prescribed medicine. 6. Please allow 2-3 days to process refills. Prescriptions will not be mailed but must be picked up at the office. FOLLOW UP VISIT: Keep your scheduled follow-up appointment. Any questions, please call the office at . Current Hospital Diet Patient's current hospital diet: Regular Diet Discharge Diet Recommended Diet: Regular Diet Procedures Procedures Performed: Fusion with Instrumentation, Interbody fusion with Application of Interbody Cage at Interbody Cage at L4-5. Bone Morphogenetic Protein, Use of Mohini Allograft Pending Studies Studies pending at discharge: no Medical Emergencies . Who to Call and When: Medical Emergencies: If at any time you feel your situation is an emergency, please call 911 immediately. . Non-Emergent Contact Non-Emergency issues call your: Primary Care Provider . "Provider Documentation" section prepared by Enoc Au. VTE Core Measure Inpt VTE Proph given/why not?: Leonel Kemp, SCD's
[2016-10-24 08:36] VITALS: PULSE 83; O2SAT 95
[2016-10-24] MEDS: ONDANSETRON INJ 2 MG/ML 2 ML VIAL IV PRN (10:45)
--- NOTE | 2016-10-24 14:49 | PROGRESS NOTE ---
DATE: 10/24/2016 DATE: 10/24/2016. SUBJECTIVE: Postop day #2. Back pain controlled. Leg pain improved. Vital signs stable. T-max 37.2. ANNAMARIA drained 55 mL. Hematocrit 30.6. OBJECTIVE: On exam, patient is relatively comfortable, has good strength to testing. ASSESSMENT: Status post lumbar decompression and fusion. PLAN: At this time, we anticipate home in the next day or so with home health. She understands and agrees.
[2016-10-24 15:17] VITALS: BP 166/84; PULSE 71; TEMP 37.2; O2SAT 94
[2016-10-24 17:23] VITALS: BP 129/81
[2016-10-24] MEDS ORDERED: NURSING VERBAL MED ORDER ONE (17:45)
[2016-10-24] MEDS: OXYCODONE HCL IR 5 MG TAB (IMMEDIATE RELEASE) PO PRN (20:45)
[2016-10-24] MEDS: DOCUSATE SODIUM/SENNA 50/8.6MG TAB PO SCH (20:46)
[2016-10-24 22:52] VITALS: BP 164/82; PULSE 81; TEMP 36.8; O2SAT 96
[2016-10-25 03:22] VITALS: BP 144/82; PULSE 77
[2016-10-25] MEDS: LEVOTHYROXINE 50 MCG TAB PO SCH (05:39)
[2016-10-25] MEDS: OXYCODONE HCL IR 5 MG TAB (IMMEDIATE RELEASE) PO PRN (05:52)
[2016-10-25 06:21] LABS: HEMATOCRIT 33.2 % (37-47); MEAN CELL VOLUME 91.2 fL (80-100); MEAN CORPUSCULAR HEMOGLOBIN 30.8 pg (25-34); MEAN CORPUSCULAR HGB CONC 33.7 g/dl (32-36); MEAN PLATELET VOLUME 11.1 fL (7.4-10.4); PLATELET COUNT 255 K/uL (130-400); RED BLOOD COUNT 3.64 M/uL (4.2-5.4); WHITE BLOOD COUNT 10.42 K/uL (4.8-10.8)
[2016-10-25 06:26] VITALS: BP 111/71; PULSE 85; TEMP 37.2; O2SAT 93
[2016-10-25 12:04] VITALS: BP 111/71; PULSE 85; TEMP 37.2; O2SAT 93
--- NOTE | 2016-10-25 15:59 | DISCHARGE SUMMARY ---
PRINCIPAL DIAGNOSIS: Spinal stenosis. HOSPITAL COURSE: On 10/22/2016 the patient underwent lumbar decompression and fusion, tolerated this well and taken to the orthopedic floor postoperatively. On postop day #1 she was up and ambulatory, progressed to postoperative day 2. On postop day #3 pain was well controlled. ANNAMARIA drain decreased appropriately. Subsequently discharged with home health. Discharge orders and instructions can be found on the chart for review.
== END 2016-10-25 13:43 | disposition home health service (06) | DRG 460 ==
LOC: ENRESERVDT → ENRESERVTM → C.ACU 05:42 → C.3E 07:32
PROVIDERS: ADMIT Orthopaedic Surgery Orthopaedic Surgery of the Spine; ATTEND Orthopaedic Surgery Orthopaedic Surgery of the Spine
PROC: 0SG3071 Fusion of Lumbosacral Joint with Autologous Tissue Substitute, Posterior Approach, Posterior Column, Open Approach (ICD-10-PCS; principal; 2016-10-22 07:45)
PROC: 3E0U0GB Introduction of Recombinant Bone Morphogenetic Protein into Joints, Open Approach (ICD-10-PCS; principal; 2016-10-22 07:45)
PROC: 0SG00AJ Fusion of Lumbar Vertebral Joint with Interbody Fusion Device, Posterior Approach, Anterior Column, Open Approach (ICD-10-PCS; principal; 2016-10-22 07:45)
PROC: 0ST20ZZ Resection of Lumbar Vertebral Disc, Open Approach (ICD-10-PCS; principal; 2016-10-22 07:45)
PROC: 01NB0ZZ Release Lumbar Nerve, Open Approach (ICD-10-PCS; principal; 2016-10-22 07:45)
PROC: 0SG1071 Fusion of 2 or more Lumbar Vertebral Joints with Autologous Tissue Substitute, Posterior Approach, Posterior Column, Open Approach (ICD-10-PCS; principal; 2016-10-22 07:45)
DX: M48.06 Spinal stenosis, lumbar region (principal); Z68.42 Body mass index [BMI] 45.0-49.9, adult; M43.16 Spondylolisthesis, lumbar region; I10 Essential (primary) hypertension; K21.9 Gastro-esophageal reflux disease without esophagitis; E03.9 Hypothyroidism, unspecified; M19.90 Unspecified osteoarthritis, unspecified site; R60.0 Localized edema; E66.01 Morbid (severe) obesity due to excess calories; Z79.1 Long term (current) use of non-steroidal anti-inflammatories (NSAID); Z79.899 Other long term (current) drug therapy